=== PATIENT | male | born 1985 | race Two or more races ===

== ENCOUNTER 2017-08-23 23:39 | Emergency (ER) | payer SELFPAY ==
--- NOTE | 2017-08-23 23:45 | NUR ---
CALLED PT NAME X3 IN WR. PER SECURITY PT STEPPED OUTSIDE. WILL CALL BACK.
--- NOTE | 2017-08-24 00:05 | NUR ---
CALLED PT NAME. PER ADMITTING PT LEFT.
== END 2017-08-24 00:20 | disposition left against medical advice (07) ==
LOC: ER 23:42
DX: Z53.21 Procedure and treatment not carried out due to patient leaving prior to being seen by health care provider (principal)